=== PATIENT | male | born 1955 | race Caucasian/White ===

== ENCOUNTER 2017-05-24 11:37 | Inpatient (IN) | payer OTHER ==
[~2017-05-24] VITALS: Ht 170.2 cm; Wt 108.9 kg
--- NOTE | ~2017-05-24 | HC ---
[facility] [address] CONSULTATION Name: GARY HAWKINS Susan Room #: 423-1 [facility] IN ..#: [id number] Admission: 05/24/17 Attend Phys: Filippo Honeycutt MD Discharge: 05/27/17 Date of : 55 Report #: [id number] THIS REPORT FOR: //name// CC: GORDON physician/PCP Filippo Honeycutt DATE OF SERVICE: 05/26/2017 WOUND CARE CONSULTATION PERSONAL PHYSICIAN: None on staff. CHIEF COMPLAINT: Left posterior flank abscess, now status post incision and drainage. HISTORY OF PRESENT ILLNESS: This is a 62-year-old male who is now 1-day status post incision and drainage of the left posterior flank abscess. The patient states approximately 5-6 days ago, he noticed he started having an area on his left posterior flank that was very pruritic. 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 The patient's family members noted he had increased erythema and warmth and then developed fevers and chills. The patient presented through the Emergency Department with what was felt to be an infected abscess of his left posterior flank. The patient was then taken to the operating room yesterday and had incision and drainage of the abscess. We have been asked to follow the patient for further wound care as an outpatient. PAST MEDICAL HISTORY: Otherwise, unremarkable. The patient has no history of diabetes. MEDICATIONS: The patient was on no medicines prior to admission to the hospital. He is currently on IV antibiotics. DRUG ALLERGIES: None. FAMILY HISTORY: Not pertinent to current medical condition. SOCIAL HISTORY: The patient does not smoke or drink alcohol. REVIEW OF SYSTEMS: CONSTITUTIONAL: The patient had fevers and chills prior to his hospitalization in the first 24 hours. The patient, however, denies any fevers and chills in the past 24 hours. NEUROLOGIC: The patient denies numbness, tingling, weakness in arms or legs. EYES: No complaints. ENT: No complaints. [facility] [address] [place] [address] CONSULTATION Name: HAWKINSGARY Room #: 423-1 [facility] IN ..#: [id number] Admission: 05/24/17 Attend Phys: Filippo Honeycutt MD Discharge: 05/27/17 Date of : 55 Report #: [id number] CARDIAC: The patient denies chest pain, palpitations or peripheral edema. RESPIRATORY: The patient denies shortness of breath, cough or wheezes. GASTROINTESTINAL: The patient denies nausea, vomiting or abdominal pain. GENITOURINARY: The patient denies urgency or frequency. MUSCULOSKELETAL: No complaints. SKIN: There is a surgical wound on the left posterior flank. PHYSICAL EXAMINATION: VITAL SIGNS: Temperature 37.2, pulse 84, respirations 20, BP 151/81. GENERAL: This is an alert and oriented x 3, pleasant male who is in absolutely no distress. HEENT: Normocephalic, atraumatic. Mucous membranes are moist. Pupils are round. Sclerae are white. NECK: Without JVD, otherwise supple. LUNGS: Clear. HEART: Regular. ABDOMEN: Soft, nontender. EXTREMITIES: The patient moves all extremities without difficulty. Distal neurovascular is otherwise intact. NEUROLOGIC: Cranial nerves 2-12 are grossly intact. Motor and sensory grossly intact. SKIN: Evaluation of left posterior flank reveals a surgical wound, which measures 1.5 x 4.8 x 2.5 cm. The wound bed itself is pink and moist with no significant odor or drainage. Periwound itself is otherwise intact with mild erythema, inflammation and minimal tenderness. There are no signs of tunneling, tracking or undermining. There are no signs of any fluctuance. LABORATORY VALUES: His white count was 15.8, hemoglobin 14.2, albumin 3.0. WOUND CARE COURSE: At this time, we will start the patient on Aquacel Ag packing to the wound bed, covered with an ABD and secured with tape. This will be changed every Wednesday, Wednesday and Wednesday. We will set up home health for the patient given the fact he says he does not think at this time he will be able to assist him with the dressing change if the patient is unable to do this on his own. I have requested the patient to followup in my office within the next 7-10 days for further evaluation and for continued evaluation of this wound. The patient is to call for question or concerns. IMPRESSION: 1. Left posterior flank abscess, status post incision and drainage. 2. Protein calorie malnutrition -- mild with an albumin of 3.0. PLAN: At this time, we will continue once again with Aquacel Ag packing as above and I will see the patient back in 7-[address] [place] [address] CONSULTATION Name: GARY HAWKINS Room #: 423-1 [facility] IN M.R.#: [id number] Admission: 05/24/17 Attend Phys: Filippo Honeycutt MD Discharge: 05/27/17 Date of : 55 Report #: [id number] I appreciate the ability to consult. <ELECTRONICALLY SIGNED> By: Willy Blue MD 06/01/17 0951 [id number] Willy Blue MD /nt
--- NOTE | ~2017-05-24 | H ---
[facility] [place] [address] HISTORY AND PHYSICAL Name: GARY HAWKINS Room #: 423-1 ADM IN M.R.#: [id number] Admission: 05/24/17 Attend Phys: Filippo Honeycutt MD Discharge: Date of : 55 Report #: [id number] THIS REPORT FOR: //name// CC: GORDON physician/PCP Filippo Honeycutt DATE OF SERVICE: 05/24/2017 CHIEF COMPLAINT: Painful swelling on the left side of the back. HISTORY OF PRESENT ILLNESS: The patient is a 62-year-old man with no previous medical history, who noticed painful swelling on the left side of the back about 3 days ago. The patient states that he initially had a small lesion, that grew over the time. He also had sweats and fever. He came to the Emergency Room. In the ER, the patient was found to have low-grade fever at 99.5, and his white count is elevated at 16.5. Soft tissue infection versus abscess was suspected. The patient's glucose was found to be over 300. He states that at some point in the past he was told that he had borderline diabetes, but he had no followup. The patient reports polydipsia and polyuria for 1 year or so. The patient received IV fluids in the Emergency Room, and started on antibiotics. He feels better. CT scan was obtained, that showed no abscess, but revealed soft tissue inflammation. PAST MEDICAL HISTORY: 1. History of cataracts, status post surgery. 2. Impaired glucose tolerance. MEDICATIONS: None. FAMILY HISTORY: Diabetes mellitus type 2 in multiple family members. SOCIAL HISTORY: The patient is retired. He does not smoke cigarettes and does not drink alcohol. REVIEW OF SYSTEMS: As above in the HPI section. All others negative. PHYSICAL EXAMINATION: GENERAL: The patient is a middle-aged man who is in no apparent distress. VITAL SIGNS: Blood pressure is 139/80, heart rate is 85 and regular, respirations 18 and temperature is 99.5. HEENT: Pupils are equal. Eye movements are normal. The patient has anicteric sclerae. NECK: Supple. He has no thyromegaly. Neck lymphadenopathy is not palpated. Oral mucosa is moist. RESPIRATORY: Chest moves symmetrically with breathing. Lungs are clear to [address] [address] HISTORY AND PHYSICAL Name: GARY HAWKINS Room #: [address] [place] [address] [place] [facility].#: [id number] Admission: 05/24/17 Attend Phys: Filippo Honeycutt MD Discharge: Date of : 55 Report #: [id number] auscultation bilaterally. CARDIOVASCULAR: The patient has regular rhythm and rate. He has no murmurs, gallops or rubs. GASTROINTESTINAL: Abdomen is soft, nondistended and nontender. Bowel sounds are present. The patient has no hepatomegaly or splenomegaly. MUSCULOSKELETAL: Range of motion is normal. He has no edema, cyanosis or clubbing. NEUROLOGIC: The patient is alert and oriented x 3. His examination is nonfocal. SKIN: The patient has large indurated area on the left side of the back, prolonged shape, about 15 cm x 5 cm. Warm and painful on palpation. LABORATORY DATA: Basic metabolic profile is essentially normal except with glucose of 321. On CBC, white count is 16.8, with 84% of neutrophils. Rest of the CBC is normal. Urinalysis shows bacteria, and red blood cells, but no evidence of UTI. ASSESSMENT AND PLAN: 1. Soft tissue infection on the left side of the back, as detailed above. As noted, CT shows no abscess. The patient is started on broad spectrum antibiotics, and blood cultures are taken. Anticipate improvement in fever and leukocytosis. 2. Hyperglycemia, that indicates new onset of diabetes mellitus type 2. The patient will be treated with IV fluids, and he will be started on insulin. The patient had IV contrast for the CT scan, so starting metformin should be delayed for 48 hours, to ensure that creatinine is stable. I had a conversation with the patient about diabetes. I strongly encouraged him to establish care with a primary care physician, and get diabetes education. We will ask dietitian to see the patient while he is here. 3. Deep vein thrombosis prophylaxis. SubQ Lovenox. <ELECTRONICALLY SIGNED> By: Filippo Honeycutt MD 05/24/172025 [id number] Filippo Honeycutt MD /nt
--- NOTE | ~2017-05-24 | S ---
[facility] [place] [address] SURGICAL PATH RPT PROCEDURE Name: GARY HAWKINS Room #: 423-1 ADM IN M.R.#: [id number] Admission: 05/24/17 Date of : 55 Discharge: Report #: [id number] Path Case #: [id number] PATHOLOGY REPORT COLLECTION DATE: 05/25/2017 RECEIVED DATE: 05/25/2017 SUBMITTING PHYS: Dr. Zachary Figueroa, DO OTHER PHYS: Dr. Filippo Honeycutt SPECIMEN(S) RECEIVED: A.Left lower back * * * * * * * * * * * * FINAL DIAGNOSIS: Skin and soft tissue, left lower back, excision and debridement: - Marked acute inflammation extending into underlying subcutaneous tissue, consistent with the provided history of abscess. - Overlying squamous epithelium showing reactive changes. (IUV:mgr; 05/26/2017) PATHOLOGIST: Dasha Johnson M.D. REPORT ELECTRONICALLY SIGNED BY: Dasha Johnson M.D. DATE/TIME: 05/26/2017 13:02 * * * * * * * * * * * * GROSS PATHOLOGY: The specimen is received in formalin, labeled "Gary Hawkins, skin and soft tissue left lower back," and consists of an ellipse of pink-obrien skin measuring 3.2 x 1.1 x 0.5 cm with underlying pink-red soft tissue measuring 2.9 x 0.8 x 0.5 cm. Licensed Clinician sections are submitted in cassette A1. (SDY; 05/25/2017) CLINICAL HISTORY: Abscess left lower back INITIAL CPT CODE(S): A; 86231 Professional services performed by [facility] at [facility] [address], [place] [address] Technical services performed by [facility] at [address] [place] [address], [address] [address]. [facility] [address] [place] [address] SURGICAL PATH RPT PROCEDURE Name: GARY HAWKINS Room #: 423-1 ADM IN .R.#: [id number] Admission: 05/24/17 Date of : 55 Discharge: Report #: [id number] Path Case #: [id number] [facility] [address] [address] PHONE: [phone] DIRECTOR: Elias Cordoba M.D. * * * END OF REPORT * * *
[~2017-05-24 11:37] MED LIST: NORCO 5-325 TA1 EACH PO; PHENERGAN 25 MG25 M1 PO
[2017-05-24 11:40] VITALS: BP 137/108
[2017-05-24 12:49] LABS: ABSOLUTE NEUTROPHILS 14.1 thou/uL (1.4-8.2); BASOPHILS 0.6 % (0.0-2.0); EOSINOPHILS 0.2 % (0.0-3.0); HEMATOCRIT 44.9 % (42.0-52.0); HEMOGLOBIN 15.5 gm/dL (14.0-18.0); LYMPHOCYTES 10.2 % (24.0-44.0); MCH 30.7 pg (26.0-34.0); MCHC 34.5 g/dL (28.0-37.0); MCV 89.1 fL (80.0-100.0); PLATELET COUNT 249 thou/uL (150-400); RBC 5.04 mil/uL (4.50-6.00); WBC 16.8 thou/uL (4.0-11.0)
[2017-05-24 12:52] LABS: MANUAL DIFF NO
[2017-05-24 12:57] LABS: CALCIUM 9.2 mg/dL (8.5-10.1); POTASSIUM 3.9 mmol/L (3.5-5.1)
[2017-05-24 14:52] VITALS: BP 151/85
[2017-05-24 15:29] VITALS: BP 139/80
[2017-05-24 15:50] VITALS: BP 144/87
[2017-05-24 20:30] VITALS: BP 159/94
[2017-05-24 23:40] VITALS: BP 144/83
[2017-05-25 02:09] LABS: GLYCOHEMOGLOBIN (HGB A1C) 10.9 % (4.8-5.6)
[2017-05-25 02:13] LABS: URINE BILIRUBIN NEGATIVE (Negative); URINE BLOOD 1+ (Negative); URINE COLOR YELLOW; URINE GLUCOSE-RANDOM* 2+ (Negative); URINE KETONES NEGATIVE (Negative); URINE LEUKOCYTES-REFLEX NEGATIVE (Negative); URINE PROTEIN (DIPSTICK) TRACE (Negative); URINE UROBILINOGEN 0.2 E.U./dl (0.2-1.0)
[2017-05-25 02:32] LABS: CASTS None Seen /LPF (None Seen); SQUAMOUS 0-3 Few /LPF (0-3); URINE WBC-REFLEX 0-5 Rare /HPF (0-5)
[2017-05-25 02:33] LABS: URINE RBC 3-10 Few /HPF (0-2)
[2017-05-25 05:00] VITALS: BP 176/103
[2017-05-25 05:57] LABS: ABSOLUTE NEUTROPHILS 11.4 thou/uL (1.4-8.2); BASOPHILS 0.4 % (0.0-2.0); EOSINOPHILS 1.2 % (0.0-3.0); HEMATOCRIT 40.4 % (42.0-52.0); HEMOGLOBIN 13.7 gm/dL (14.0-18.0); LYMPHOCYTES 14.4 % (24.0-44.0); MCH 30.6 pg (26.0-34.0); MCHC 33.9 g/dL (28.0-37.0); MCV 90.3 fL (80.0-100.0); MONOCYTES 5.6 % (1.0-8.0); PLATELET COUNT 240 thou/uL (150-400); POLYS 78.4 % (36.0-66.0); RBC 4.48 mil/uL (4.50-6.00); RDW 12.8 % (10.5-14.5); WBC 14.6 thou/uL (4.0-11.0)
[2017-05-25 06:01] LABS: MANUAL DIFF NO
[2017-05-25 06:11] LABS: CALCIUM 8.3 mg/dL (8.5-10.1); CREATININE 1.1 mg/dL (0.7-1.3); POTASSIUM 4.3 mmol/L (3.5-5.1); TOTAL BILIRUBIN 0.6 mg/dL (<0.1-1.0); TOTAL PROTEIN 6.6 g/dL (6.4-8.2)
[2017-05-25 06:15] VITALS: BP 141/89
[2017-05-25 07:50] VITALS: BP 133/83
[2017-05-25 11:30] VITALS: BP 168/107
[2017-05-25 15:55] VITALS: BP 160/85
[2017-05-25 20:00] VITALS: BP 160/90
[2017-05-26 02:43] LABS: ABSOLUTE NEUTROPHILS 12.4 thou/uL (1.4-8.2); BASOPHILS 0.8 % (0.0-2.0); HEMATOCRIT 42.2 % (42.0-52.0); HEMOGLOBIN 14.2 gm/dL (14.0-18.0); LYMPHOCYTES 14.3 % (24.0-44.0); MCH 30.4 pg (26.0-34.0); MCHC 33.7 g/dL (28.0-37.0); MCV 90.5 fL (80.0-100.0); MONOCYTES 5.2 % (1.0-8.0); PLATELET COUNT 280 thou/uL (150-400); POLYS 78.7 % (36.0-66.0); RBC 4.67 mil/uL (4.50-6.00); WBC 15.8 thou/uL (4.0-11.0)
[2017-05-26 02:48] LABS: MANUAL DIFF NO
[2017-05-26 02:57] LABS: ANION GAP 11 mmol/L (7-16); BUN 10 mg/dL (7-18); CALCIUM 8.6 mg/dL (8.5-10.1); CHLORIDE 100 mmol/L (98-107); CHOLESTEROL 191 mg/dL (<200); CO2 27 mmol/L (21-32); GLUCOSE 182 mg/dL (74-106); HDL CHOLESTEROL 44 mg/dL (>40); LDL CHOLESTEROL 118 mg/dL (<100); MAGNESIUM 1.7 mg/dL (1.8-2.4); POTASSIUM 3.8 mmol/L (3.5-5.1); SODIUM 138 mmol/L (136-145); TC:HDL 4.3 Ratio (Not establshd); TRIGLYCERIDE 149 mg/dL (<150); VLDL 30 mg/dL (<40)
[2017-05-26 02:59] LABS: SERUM ASSESSMENT Clear
[2017-05-26 03:26] LABS: TSH 0.724 uIU/mL (0.358-3.740)
[2017-05-26 04:08] VITALS: BP 115/67
[2017-05-26 07:45] VITALS: BP 128/88
[2017-05-26 15:17] VITALS: BP 128/88
[2017-05-26 16:20] VITALS: BP 133/78
[2017-05-26 19:34] VITALS: BP 131/83
[2017-05-27 04:56] VITALS: BP 135/86
[2017-05-27 08:00] VITALS: BP 151/81
[2017-05-27] MEDS ORDERED: KEFLEX500 M1 PO ×2 (09:47→13:16)
[2017-05-27] MEDS ORDERED: GLYBURIDE 5 MG T5 M1 PO (09:59)
[2017-05-27] MEDS ORDERED: LISINOPRIL20 MG PO (09:59)
[2017-05-27] MEDS ORDERED: CARVEDILOL3.125 MG PO (09:59)
[2017-05-27] MEDS ORDERED: GLUCOPHAGE500 MG PO (09:59)
[2017-05-27 10:13] VITALS: BP 128/88
[2017-05-28] MEDS ORDERED: NORCO 5-325 TA1 EACH PO (12:48)
== END 2017-05-27 13:46 | disposition home or self-care (01) | DRG 571 ==
LOC: ER 11:37 → 4E 13:42 → EROBS 13:42 → 4E 15:29
PROVIDERS: Internal Medicine Endocrinology, Diabetes & Metabolism; Nurse Practitioner; Physician Assistant; Specialist
PROC: 0JB70ZZ Excision of Back Subcutaneous Tissue and Fascia, Open Approach (ICD-10-PCS; principal; 2017-05-25)
DX: L03.312 Cellulitis of back [any part except buttock and flank] (principal); E44.1 Mild protein-calorie malnutrition; E11.65 Type 2 diabetes mellitus with hyperglycemia; B95.61 Methicillin susceptible Staphylococcus aureus infection as the cause of diseases classified elsewhere; L02.212 Cutaneous abscess of back [any part, except buttock and flank]; R03.0 Elevated blood-pressure reading, without diagnosis of hypertension; E11.319 Type 2 diabetes mellitus with unspecified diabetic retinopathy without macular edema; Z68.37 Body mass index [BMI] 37.0-37.9, adult; Z79.84 Long term (current) use of oral hypoglycemic drugs; Z79.899 Other long term (current) drug therapy; Z83.3 Family history of diabetes mellitus
CPT/HCPCS: 10084; 50010; 50101; 50386; 50403; 62110; 62900; 70005

== ENCOUNTER → 2017-06-04 | Outpatient (CLI) | payer OTHER ==
[~2017-06-04] MED LIST changes: +CARVEDILOL3.125 MG PO; +GLUCOPHAGE500 MG PO; +GLYBURIDE 5 MG T5 M1 PO; +KEFLEX500 M1 PO; +LISINOPRIL20 MG PO
== END ==
LOC: HYPER 08:13
DX: L02.211 Cutaneous abscess of abdominal wall (principal); L08.9 Local infection of the skin and subcutaneous tissue, unspecified; Z86.14 Personal history of Methicillin resistant Staphylococcus aureus infection; E11.36 Type 2 diabetes mellitus with diabetic cataract; E11.319 Type 2 diabetes mellitus with unspecified diabetic retinopathy without macular edema; I10 Essential (primary) hypertension; Z72.89 Other problems related to lifestyle

== ENCOUNTER → 2017-06-30 | Outpatient (CLI) | payer OTHER | LOC: HYPER 06:41 | DX: T81.31XD Disruption of external operation (surgical) wound, not elsewhere classified, subsequent encounter (principal); L02.211 Cutaneous abscess of abdominal wall; E11.36 Type 2 diabetes mellitus with diabetic cataract; E11.319 Type 2 diabetes mellitus with unspecified diabetic retinopathy without macular edema; I10 Essential (primary) hypertension; L84 Corns and callosities; Z86.14 Personal history of Methicillin resistant Staphylococcus aureus infection; Z98.49 Cataract extraction status, unspecified eye; Z72.89 Other problems related to lifestyle; Y83.8 Other surgical procedures as the cause of abnormal reaction of the patient, or of later complication, without mention of misadventure at the time of the procedure ==

== ENCOUNTER → 2020-10-28 | Outpatient (CLI) | payer OTHER | LOC: SJCVC 14:55 | PROVIDERS: ATTEND Internal Medicine | DX: R94.31 Abnormal electrocardiogram [ECG] [EKG] (principal); R06.00 Dyspnea, unspecified; E78.5 Hyperlipidemia, unspecified; E11.22 Type 2 diabetes mellitus with diabetic chronic kidney disease; I12.9 Hypertensive chronic kidney disease with stage 1 through stage 4 chronic kidney disease, or unspecified chronic kidney disease; N18.1 Chronic kidney disease, stage 1; G47.33 Obstructive sleep apnea (adult) (pediatric); Z79.899 Other long term (current) drug therapy; Z79.4 Long term (current) use of insulin ==

== ENCOUNTER → 2020-11-05 | Outpatient (CLI) | payer OTHER | LOC: SJCVCIMAG 08:28 | PROVIDERS: ATTEND Internal Medicine | DX: I44.7 Left bundle-branch block, unspecified (principal); I49.3 Ventricular premature depolarization; R06.00 Dyspnea, unspecified; E11.9 Type 2 diabetes mellitus without complications; Z79.4 Long term (current) use of insulin; Z79.899 Other long term (current) drug therapy ==

== ENCOUNTER → 2020-12-07 | Outpatient (CLI) | payer OTHER ==
--- NOTE | 2020-12-09 15:01 | SLE ---
[facility] [place] [address] POLYSOMNOGRAPHY STUDY Name: GARY HAWKINS Room #: REG [facility]#: [id number] Admission: 12/07/20 Attend Phys: José Miguel Fontaine MD, Discharge: Date of : 55 Report #: [id number] THIS REPORT FOR: cc: Go Salinas David J. DO Khan, Aman U. MD ~ DOC #: [id number] cc: José Miguel Fontaine MD [facility] Fernando Greenberg MD DATE OF SERVICE: 12/08/2020 SLEEP STUDY ATTENDING PHYSICIAN: Dr. José Miguel Fontaine. FINDINGS: The patient is a 65-year-old, who weighs 265 pounds with a BMI of 41.5. The patient underwent a split night study performed at [place] sleep lab. The patient's Rye score was 5. During the night study, the patient spent 403 minutes in bed and slept for 294 minutes with a sleep efficiency of 73%. Sleep latency was 15.1 minutes with a REM latency of 289 minutes. Sleep architecture showed increased stage I and stage II sleep, absent slow wave and reduced REM sleep, which was 10% of the total sleep time. During the initial diagnostic portion of the study, the patient slept for 130 minutes. During that time, the patient had 37 obstructive apneas, no mixed apneas and 10 central apneas. The patient also had 106 hypopneas. The patient's AHI was 71 per hour. REM sleep was not seen during the diagnostic portion. Supine AHI was also 71 per hour. EKG monitoring revealed an average heart rate of 61 beats per minute. Occasional PVC seen. No sustained arrhythmias seen. PLMS were seen as an index of 68 per hour and 4 per hour caused EEG arousals. Nocturnal oximetry study revealed an average oxygen saturation of 91% with a lowest of 74%. 44 minutes were spent with oxygen saturation less than 89%. The patient met the criteria for CPAP initiation. It was started at 7 cm water and titrated up to 17 cm of water. At the final pressure, the patient slept for 34 minutes. The patient had supine sleep, but no REM sleep. The patient's AHI was reduced to 7.1 per hour and oxygen saturations remained above 92%. I would recommend a final pressure is 18 cm of water. IMPRESSION: 1. Severe obstructive sleep apnea at an AHI of 71 per [address] [address] POLYSOMNOGRAPHY STUDY Name: GARY HAWKINS [id number] Admission: 12/07/20 Attend Phys: José Miguel Fontaine MD, Discharge: Date of : 55 Report #: [id number] 2. Nocturnal hypoxia secondary to obstructive sleep apnea, but resolved with CPAP. 3. Severe periodic leg movements, which did improve from an index of 68 per hour to 29.6 per hour while the patient slept on CPAP. RECOMMENDATIONS: 1. CPAP at 18 cm of water should be used on a nightly basis. 2. Follow up in 4-6 weeks to assess compliance with CPAP and to document clinical improvement. 3. Weight loss is advised. Avoid [employer] depressants. 4. Cautioned regarding driving until symptoms of sleep apnea resolve with the use of CPAP. 5. The patient should also be further evaluated for symptoms of restless legs during the day. MD IKE HamlinK/ORLIN <ELECTRONICALLY SIGNED> By: Fernando Greenberg MD 12/09/20 1501 1001 1039 Fernando Greenberg MD /nt
== END ==
LOC: SLEEPLAB 11:54
PROVIDERS: ATTEND Internal Medicine
DX: G47.33 Obstructive sleep apnea (adult) (pediatric) (principal)

== ENCOUNTER → 2021-05-08 | Outpatient (CLI) | payer OTHER | LOC: SJCVC 13:13 | PROVIDERS: ATTEND Internal Medicine | DX: I12.9 Hypertensive chronic kidney disease with stage 1 through stage 4 chronic kidney disease, or unspecified chronic kidney disease (principal); N18.1 Chronic kidney disease, stage 1; E11.22 Type 2 diabetes mellitus with diabetic chronic kidney disease; E78.5 Hyperlipidemia, unspecified; G47.33 Obstructive sleep apnea (adult) (pediatric); R06.00 Dyspnea, unspecified; Z82.49 Family history of ischemic heart disease and other diseases of the circulatory system; Z79.899 Other long term (current) drug therapy; Z79.4 Long term (current) use of insulin ==